=== PATIENT | female | born 1955 | race Caucasian/White ===

== ENCOUNTER 2016-05-02 19:11 | Emergency (ER) | payer OTHER ==
[~2016-05-02] VITALS: Wt 84.5 kg
[~2016-05-02 19:11] MED LIST: ALPR0.25 PO; AMLO5TAB4 PO; ATOR10TA65 PO; AZIT250T94 PO; BENZ100C70 PO; CALC-395 PO; GLYB2.5T2 PO; LINA5TAB PO; LOSA100T7 PO; MECL-77 PO; METO-429 PO; OMEP20CA16 PO; ONDA-43 PO; PARO10TA26 PO
[2016-05-02 20:02] VITALS: BP 162/92; PULSE 72; RESP 25; TEMP 97.9
[2016-05-02] MEDS ORDERED: SOD CHLORIDE 0.9% 1,000 ML IV STA (20:09)
[2016-05-02] MEDS ORDERED: KETOROLAC 15 MG INJ IV STA (20:09)
[2016-05-02] MEDS ORDERED: LORAZEPAM 2 MG INJ IV ONE (20:30)
[2016-05-02] MEDS ORDERED: LOSA50TA6 PO (20:50)
[2016-05-02] MEDS ORDERED: METO-448 PO (20:50)
[2016-05-02 20:51] LABS: BASOPHIL # 0.1 10^3/ul (0.0-0.1); BASOPHILS % 0.7 % (0.0-2.0); EOSINOPHILS # 0.2 10^3/ul (0.0-0.5); EOSINOPHILS % 1.8 % (0.0-7.0); HEMATOCRIT 46.7 % (37.0-47.0); HEMOGLOBIN 16.1 g/dl (12.0-16.0); LYMPHOCYTES # 3.2 10^3/ul (0.8-2.9); LYMPHOCYTES % 29.7 % (15.0-51.0); MEAN CORPUSCULAR HEMOGLOBIN 29.2 pg (29.0-33.0); MEAN CORPUSCULAR HGB CONC 34.5 g/dl (32.0-37.0); MEAN CORPUSCULAR VOLUME 84.4 fl (82.0-101.0); MEAN PLATELET VOLUME 8.6 fl (7.4-10.4); MONOCYTE # 0.8 10^3/ul (0.3-0.9); MONOCYTES % 7.8 % (0.0-11.0); NEUTROPHIL # 6.4 10^3/ul (1.6-7.5); PLATELET COUNT 338 10^3/UL (140-440); RED BLOOD COUNT 5.54 10^6/ul (4.20-5.40); RED CELL DISTRIBUTION WIDTH 14.1 % (11.5-14.5); UNCORRECTED WBC 10.7 10^3/ul (4.8-10.8); WHITE BLOOD COUNT 10.7 10^3/ul (4.8-10.8)
[2016-05-02] MEDS ORDERED: AMLO2.5T78 PO (20:51)
[2016-05-02] MEDS ORDERED: METF-382 PO (20:51)
[2016-05-02] MEDS ORDERED: ASPI-664 PO (20:51)
[2016-05-02 20:52] LABS: CONDITION 1
[2016-05-02 20:54] LABS: POTASSIUM 4.3 mmol/L (3.5-5.1)
[2016-05-02 20:56] LABS: CREATININE 0.6 mg/dl (0.44-1.00)
[2016-05-02 20:57] LABS: CALCIUM 10.3 mg/dl (8.4-10.2)
[2016-05-02 21:01] LABS: ADD UMIC NO; URINE BILIRUBIN (Dip) NEGATIVE (NEGATIVE); URINE BLOOD (Dip) NEGATIVE (NEGATIVE); URINE COLOR LT. YELLOW (YELLOW); URINE GLUCOSE (Dip) NEGATIVE (NEGATIVE); URINE KETONES (Dip) NEGATIVE (NEGATIVE); URINE LEUKOCYTE ESTERASE (Dip) NEGATIVE (NEGATIVE); URINE NITRITE (Dip) NEGATIVE (NEGATIVE); URINE TOTAL PROTEIN (Dip) NEGATIVE (NEGATIVE); URINE UROBILINOGEN (Dip) 0.2 E.U./dL (0.1-1.0)
[2016-05-02] MEDS ORDERED: ALPR0.5T PO (22:15)
[2016-05-02] MEDS ORDERED: IBUP-1542 PO (22:17)
--- NOTE | 2016-05-02 22:22 | ERD ---
ER Documentation Chief Complaint Date/Time DATE: 05/02/16 TIME: 22:20 Chief Complaint severe headache started today and neck and left arm numbness HPI 60-year-old woman brought in by family members for diffuse headache beginning gradually after speaking to her father who is in [place]. Patient has a long history of depression and anxiety and states she felt extremely anxious after speaking to him because of long-standing family issues she has had, she states she has had similar episodes in the past usually associated with anxiety and stress related to her father. She states the headache is similar to previous episodes, began gradually, associated with full body paresthesias and carpopedal spasms. She denies slurred speech or weakness in her arms or legs, no vomiting or diarrhea, no chest pain or shortness of breath, no fevers or chills, no loss of consciousness, no dysuria. ROS All systems reviewed and are negative except as per history of present illness. Medications Home Meds Active Scripts Ibuprofen* (Ibuprofen*) 600 Mg Tablet, 600 MG PO Q8 for PAIN AND/OR INFLAMMATION , #30 TAB Prov:JONATHAN HODGES MD 05/02/16 Alprazolam* (Xanax*) 0.5 Mg Tab, 0.5 MG PO TID for ANXIETY, #15 TAB Prov:JONATHAN HODGES MD 05/02/16 Reported Medications Aspirin* (Aspirin* EC) 81 Mg Tablet.dr, 81 MG PO DAILY, TAB 05/02/16 Amlodipine Besylate* (Amlodipine Besylate*) 2.5 Mg Tablet, 2.5 MG PO DAILY, #30 TAB 05/02/16 Metformin Hcl* (Metformin Hcl*) 500 Mg Tablet, 500 MG PO WITH BREAKFAST DINNE, # 60 TAB 05/02/16 Metoprolol Tartrate* (Lopressor*) 25 Mg Tab, 25 MG PO DAILY, #60 TAB 05/02/16 Losartan Potassium* (Losartan Potassium*) 50 Mg Tablet, 50 MG PO DAILY, TAB 05/02/16 Calcium Phosphate/Vitamin D3 (Calvite P&D Tablet) 1 Tab Tablet, 1 TAB PO BID, TAB 05/25/15 Paroxetine Hcl* (Paxil*) 10 Mg Tablet, 10 MG PO DAILY, TAB 05/25/15 Omeprazole* (Omeprazole*) 20 Mg Capsule.dr, 20 MG PO DAILY, #30 CAP 05/25/15 Atorvastatin Calcium (Atorvastatin Calcium) 10 Mg Tablet, 10 MG PO QHS, #30 TAB 05/25/15 Discontinued Reported Medications Alprazolam* (Xanax*) 0.25 Mg Tablet, 0.25 MG PO QHS Y for ANXIETY, TAB 09/23/15 Meclizine Hcl* (Meclizine Hcl*) 25 Mg Tablet, 25 MG PO Q8H Y for NAUSEA AND/OR VOMITING, TAB 05/25/15 Losartan Potassium* (Losartan Potassium*) 100 Mg Tablet, 100 MG PO DAILY, TAB 05/25/15 Discontinued Scripts Ondansetron Hcl* (Zofran*) 4 Mg Tab, 4 MG PO Q6H Y for NAUSEA AND OR VOMITING for 14 Days, TAB Prov:KARYN PRESLEY S. 09/25/15 Amlodipine Besylate* (Norvasc*) 5 Mg Tablet, 5 MG PO DAILY for 30 Days, TAB Prov:KARYN PRESLEY S. 09/24/15 Metoprolol Tartrate* (Lopressor*) 50 Mg Tab, 50 MG PO DAILY, #30 TAB Prov:KARYN PRESLEY S. 09/24/15 Linagliptin (TRADJENTA) 5 Mg Tablet, 5 MG PO DAILY for 30 Days, TAB 2 Refills Prov:KARYN PRESLEY S. 09/24/15 Glyburide* (Glyburide*) 2.5 Mg Tablet, 2.5 MG PO BID WITH MEALS for 30 Days, TAB 2 Refills Prov:KARYN PRESLEY S. 09/24/15 Benzonatate* (Tessalon Perle*) 100 Mg Capsule, 200 MG PO TID, #15 CAP Prov:WALDO NEW MD 05/25/15 Azithromycin* (Zithromax*) 250 Mg Tablet, 250 MG PO .ZPACK DIRECTED, #6 TAB TAKE 500 MG (2 TABS) THE FIRST DAY THEN 250 MG (1 TAB) DAYS 2-5 Prov:WALDO NEW MD 05/25/15 Allergies Allergies: Coded Allergies: No Known Allergy (Unverified , 05/02/16) PMhx/Soc Depression, anxiety, diabetes mellitus, hypertension, obesity History of Surgery: Yes (c sec x2, appy, bladder) Anesthesia Reaction: No (unknown) Hx Neurological Disorder: No Hx Respiratory Disorders: No Hx Cardiac Disorders: Yes (htn) Hx Psychiatric Problems: Yes (depression) Hx Miscellaneous Medical Probl: Yes (DM) Hx Alcohol Use: No Hx Substance Use: No Hx Tobacco Use: No Smoking Status: Never smoker FmHx Family History: No diabetes Physical Exam Vitals Vital Signs Date Time Temp Pulse Resp B/P Pulse Ox O2 Delivery O2 Flow Rate FiO2 05/02/16 20:02 97.9 72 25 162/92 100 Room Air 05/02/16 19:25 97.9 82 20 190/112 99 Physical Exam GENERAL: Well-developed, well-nourished, anxious HEENT: Moist mucous membranes, pink conjunctiva, no cervical spine tenderness or step-off deformities, no goiter, no jaundice or icterus, extraocular movements intact without pain. No submandibular induration, and no pharyngeal erythema NEURO: Alert and oriented 3, cranial nerves II through XII intact bilaterally, pupils equal round reactive to light, no focal deficits or facial asymmetry, sensation intact distally Strength 5/5 in upper and lower extremities bilaterally CARDIAC: Regular rate and rhythm, no murmurs rubs or gallops LUNGS: Clear bilaterally no wheezing crackles or stridor ABDOMEN: Soft nontender, no guarding, no rigidity, no rebound, no psoas sign no obturator sign. Normoactive bowel sounds SKIN: Warm and dry to touch, no abrasions, contusions, or hematomas, no lacerations, no ecchymosis, no target lesions, and without ulcers EXTREMITIES: No clubbing cyanosis or edema, calves are bilaterally symmetrical, no Homans sign, no popliteal cord sign. Distal pulses equal and bilateral PSYCH: Anxious Result Diagram: 05/02/16203105/02/162031 Results 24 hrs Laboratory Tests Test 05/02/16 20:32 Anion Gap 21 Basophils # 0.110^3/ul Basophils % 0.7% Blood Urea Nitrogen 13mg/dl Calcium Level 10.3mg/dl Carbon Dioxide Level 23mmol/L Chloride Level 103mmol/L Creatinine 0.60mg/dl Eosinophils # 0.210^3/ul Eosinophils % 1.8% Glucose Level 155mg/dl Hematocrit 46.7% Hemoglobin 16.1g/dl Lymphocytes # 3.210^3/ul Lymphocytes % 29.7% Mean Corpuscular Hemoglobin 29.2pg Mean Corpuscular Hemoglobin Concent 34.5g/dl Mean Corpuscular Volume 84.4fl Mean Platelet Volume 8.6fl Monocytes # 0.810^3/ul Monocytes % 7.8% Neutrophils # 6.410^3/ul Neutrophils % 60.0% Nucleated Red Blood Cells # 0.010^3/ul Nucleated Red Blood Cells % 0.0/100WBC Platelet Count 90320^3/UL Potassium Level 4.3mmol/L Red Blood Count 5.5410^6/ul Red Cell Distribution Width 14.1% Sodium Level 143mmol/L Urine Bilirubin NEGATIVE Urine Clarity CLEAR Urine Color LT. YELLOW Urine Glucose NEGATIVE% Urine Hemoglobin NEGATIVE Urine Ketones NEGATIVE Urine Leukocyte Esterase NEGATIVE Urine Nitrite NEGATIVE Urine Specific [place] <=1.005 Urine Total Protein NEGATIVE Urine Urobilinogen 0.2 E.U./dL Urine pH 6.0 White Blood Count 10.710^3/ul Current Medications Medications (Trade) Dose Ordered Sig/Sandy Route PRN Reason Start Time Stop Time Status Last Admin Dose Admin Lorazepam 0.5 mg 0.5 mg ONCE ONCE IV 05/02/16 20:30 05/02/16 20:31 DC 05/02/16 20:26 Sodium Chloride (NS) 1,000 ml @ 1,000 mls/hr Q1H STAT IV 05/02/16 20:09 05/02/16 21:08 DC 05/02/16 20:26 Ketorolac Tromethamine (Toradol) 15 mg ONCE STAT IV 05/02/16 20:09 05/02/16 20:10 DC 05/02/16 20:26 Oxycodone/ Acetaminophen (Percocet (5/ 325)) 1 tab ONCE ONCE PO 05/02/16 22:30 05/02/16 22:31 DC 05/02/16 22:43 Procedures/MDM IV line was established patient was placed on paving supervisor rhythm strip revealed a sinus rhythm at about 80 bpm with upright P and T waves. Patient was afebrile. I administered 1 L normal saline intravenously and lorazepam 0.5 mg IV for anxiety as well as Toradol 15 mg IV with good pain control. Headache initially improved and resolved completely although just prior to discharge she stated the discomfort returned and was treated successfully here with Percocet 1 tablet p.o. CBC and electrolytes were normal. Urine analysis was negative for infection. Neurologic exam was repeated after initial medications were administered and just prior to discharge, she had no focal deficits and no acute abnormal findings. Differential diagnoses considered, included but not limited to acute coronary syndrome, pulmonary embolism, aortic dissection, abdominal aortic aneurysm, sepsis, stroke, meningitis, encephalitis, pneumonia, appendicitis, cholecystitis , bowel obstruction, pyelonephritis, nephrolithiasis, cystitis, as well as metabolic, hematologic, and electrolyte abnormalities. As well as abscess, cellulitis, fractures, and dislocations. Patient feels much better at this time, and vital signs are normal, symptoms have improved. I did give strict instructions to return to the ED if symptoms continue or worsen, patient will otherwise follow-up with primary care physician. Patient understood instructions and agreed to plan. Departure Diagnosis: Primary Impression: Anxiety Additional Impression: Headache Headache type: unspecified Headache chronicity pattern: acute headache Intractability: not intractable Qualified Code: R51 - Acute nonintractable headache, unspecified headache type Condition: Good Patient Instructions: Anxiety Reaction, Headache, Tension JONATHAN HODGES MD May 02, 2016 22:22
[2016-05-02] MEDS ORDERED: OXYCODONE/ACETAMINOPHEN (5/325) TAB PO ONE (22:30)
== END 2016-05-02 22:48 | disposition home or self-care (01) ==
LOC: E/R 19:11
DX: F41.9 Anxiety disorder, unspecified (principal); I10 Essential (primary) hypertension; E11.9 Type 2 diabetes mellitus without complications; Z79.4 Long term (current) use of insulin; Z79.84 Long term (current) use of oral hypoglycemic drugs
CPT/HCPCS: 36415; 80048; 81003; 85025; 96374; 96375; 99284; J1885; J2060; J7030

== ENCOUNTER 2016-05-09 18:54 | Emergency (ER) | payer OTHER ==
[~2016-05-09] VITALS: Ht 162.6 cm; Wt 86.0 kg
[~2016-05-09 18:54] MED LIST changes: -ALPR0.25 PO; +ALPR0.5T PO; +AMLO2.5T78 PO; -AMLO5TAB4 PO; +ASPI-664 PO; -AZIT250T94 PO; -BENZ100C70 PO; -GLYB2.5T2 PO; +IBUP-1542 PO; -LINA5TAB PO; -LOSA100T7 PO; +LOSA50TA6 PO; -MECL-77 PO; +METF-382 PO; -METO-429 PO; +METO-448 PO; -ONDA-43 PO
[2016-05-09 20:13] VITALS: Ht 162.6 cm; Wt 86.0 kg
--- NOTE | 2016-05-09 21:37 | ERA ---
ER Documentation Chief Complaint Date/Time DATE: 05/09/16 TIME: 21:34 Chief Complaint headache x 8 days HPI The patient is a 60-year-old female, presenting to the ER because of acute on chronic left sided headache for the last 8 days. In the ER about a week ago and was discharged with medication for headache anxiety. She saw her doctor yesterday who ordered an MRI. She has history of migraine, denies photophobia, phonophobia, fever, chills, neck pain, chest pain, dyspnea, abdominal pain, vomiting. She has a lot of stress in her life headache is 5/10, no aggravating or relieving factor. She does not smoke nor drink Past medical history: Hypertension, diabetes mellitus, dyslipidemia, migraine, gastritis Past surgical history: 2 , appendectomy ROS All systems reviewed and are negative except as per history of present illness. Medications Home Meds Active Scripts Ondansetron (Ondansetron Odt) 4 Mg Tab.rapdis, 4 MG PO Q6H Y for NAUSEA AND/OR VOMITING, #10 TAB Prov:BRANDYN CALIX MD 05/09/16 Hydrocodone/Acetaminophen ([place] 10-325 Tablet) 1 Each Tablet, 1 TAB PO Q6H Y for PAIN, #7 TAB Prov:BRANDYN CALIX MD 05/09/16 Ibuprofen* (Ibuprofen*) 600 Mg Tablet, 600 MG PO Q8 for PAIN AND/OR INFLAMMATION , #30 TAB Prov:JONATHAN HODGES MD 05/02/16 Alprazolam* (Xanax*) 0.5 Mg Tab, 0.5 MG PO TID for ANXIETY, #15 TAB Prov:JONATHAN HODGES MD 05/02/16 Reported Medications Aspirin* (Aspirin* EC) 81 Mg Tablet.dr, 81 MG PO DAILY, TAB 05/02/16 Amlodipine Besylate* (Amlodipine Besylate*) 2.5 Mg Tablet, 2.5 MG PO DAILY, #30 TAB 05/02/16 Metformin Hcl* (Metformin Hcl*) 500 Mg Tablet, 500 MG PO WITH BREAKFAST DINNE, # 60 TAB 05/02/16 Metoprolol Tartrate* (Lopressor*) 25 Mg Tab, 25 MG PO DAILY, #60 TAB 05/02/16 Losartan Potassium* (Losartan Potassium*) 50 Mg Tablet, 50 MG PO DAILY, TAB 05/02/16 Calcium Phosphate/Vitamin D3 (Calvite P&D Tablet) 1 Tab Tablet, 1 TAB PO BID, TAB 05/25/15 Paroxetine Hcl* (Paxil*) 10 Mg Tablet, 10 MG PO DAILY, TAB 05/25/15 Omeprazole* (Omeprazole*) 20 Mg Capsule.dr, 20 MG PO DAILY, #30 CAP 05/25/15 Atorvastatin Calcium (Atorvastatin Calcium) 10 Mg Tablet, 10 MG PO QHS, #30 TAB 05/25/15 Discontinued Reported Medications Alprazolam* (Xanax*) 0.25 Mg Tablet, 0.25 MG PO QHS Y for ANXIETY, TAB 09/23/15 Meclizine Hcl* (Meclizine Hcl*) 25 Mg Tablet, 25 MG PO Q8H Y for NAUSEA AND/OR VOMITING, TAB 05/25/15 Losartan Potassium* (Losartan Potassium*) 100 Mg Tablet, 100 MG PO DAILY, TAB 05/25/15 Discontinued Scripts Ondansetron Hcl* (Zofran*) 4 Mg Tab, 4 MG PO Q6H Y for NAUSEA AND OR VOMITING for 14 Days, TAB Prov:KARYN PRESLEY S. 09/25/15 Amlodipine Besylate* (Norvasc*) 5 Mg Tablet, 5 MG PO DAILY for 30 Days, TAB Prov:KARYN PRESLEY S. 09/24/15 Metoprolol Tartrate* (Lopressor*) 50 Mg Tab, 50 MG PO DAILY, #30 TAB Prov:KARYN PRESLEY S. 09/24/15 Linagliptin (TRADJENTA) 5 Mg Tablet, 5 MG PO DAILY for 30 Days, TAB 2 Refills Prov:KARYN PRESLEY S. 09/24/15 Glyburide* (Glyburide*) 2.5 Mg Tablet, 2.5 MG PO BID WITH MEALS for 30 Days, TAB 2 Refills Prov:KARYN PRESLEY S. 09/24/15 Benzonatate* (Tessalon Perle*) 100 Mg Capsule, 200 MG PO TID, #15 CAP Prov:WALDO NEW MD 05/25/15 Azithromycin* (Zithromax*) 250 Mg Tablet, 250 MG PO .LIT DIRECTED, #6 TAB TAKE 500 MG (2 TABS) THE FIRST DAY THEN 250 MG (1 TAB) DAYS 2-5 Prov:WALDO NEW MD 05/25/15 Allergies Allergies: Coded Allergies: No Known Allergy (Unverified , 05/02/16) PMhx/Soc History of Surgery: Yes (c sec x2, appy, bladder) Anesthesia Reaction: No (unknown) Hx Neurological Disorder: No Hx Respiratory Disorders: No Hx Cardiac Disorders: Yes (htn) Hx Psychiatric Problems: Yes (depression) Hx Miscellaneous Medical Probl: Yes (DM) Hx Alcohol Use: No Hx Substance Use: No Hx Tobacco Use: No Physical Exam Vitals Vital Signs Date Time Temp Pulse Resp B/P Pulse Ox O2 Delivery O2 Flow Rate FiO2 05/09/16 22:13 99.6 82 20 163/98 100 Room Air 05/09/16 20:13 98.6 84 20 178/97 99 Physical Exam Const: No acute distress. Head: Atraumatic. Eyes: Normal Conjunctiva. ENT: Normal External Ears, Nose and Mouth. Neck: Full range of motion. No meningismus. Resp: Clear to auscultation bilaterally. Cardio: Regular rate and rhythm, no murmurs. Abd: Soft, non distended, normal bowel sounds, non tender. Skin: No petechiae or rashes. Back: No midline or flank tenderness. Ext: No cyanosis, or edema. Neur: Awake and alert. No focal deficit Psych: Normal Mood and Affect. Results 24 hrs Current Medications Medications (Trade) Dose Ordered Sig/Sandy Route PRN Reason Start Time Stop Time Status Last Admin Dose Admin Acetaminophen/ Hydrocodone Bitart ([place] (10/325)) 1 tab ONCE ONCE PO 05/09/16 22:30 05/09/16 22:30 DC 05/09/16 22:15 Ondansetron HCl (Zofran Odt) 4 mg ONCE STAT ODT 05/09/16 22:03 05/09/16 22:04 DC 05/09/16 22:14 Procedures/MDM MEDICAL MAKING DECISION: The patient is a 60-year-old female, presenting with acute on chronic headache of unclear etiology. She already had an MRI yesterday. She was treated with [place] 10 mg p.o. and Zofran ODT for nausea with good response. She is stable for outpatient follow-up. the differential diagnoses considered include but are not limited to subarachnoid hemorrhage, occult trauma, CVA, meningitis, encephalitis, hypertension, tension, migraine, cluster, narcotic withdrawal, cervical spine disease. Departure Diagnosis: Primary Impression: Chronic headache Condition: Good Comments She was discharged with Beto Balderas I discussed the findings with the patient. I advised the patient to follow-up with the neurologist Dr. Wayne in about 1-2 days, sooner if needed and return if any concern. BRANDYN CALIX MD May 09, 2016 21:37
[2016-05-09] MEDS ORDERED: ONDANSETRON (ODT) 4 MG TAB ODT STA (22:03)
[2016-05-09] MEDS ORDERED: ONDA4TAB14 PO (22:04)
[2016-05-09] MEDS ORDERED: HYDR-902 PO (22:04)
[2016-05-09 22:13] VITALS: BP 163/98; PULSE 82; RESP 20; TEMP 99.6
[2016-05-09] MEDS ORDERED: HYDROCODONE/APAP (10/325) TAB PO ONE (22:30)
== END 2016-05-09 22:19 | disposition home or self-care (01) ==
LOC: FTE 18:54
DX: R51 Headache (principal); I10 Essential (primary) hypertension; E11.9 Type 2 diabetes mellitus without complications; I25.10 Atherosclerotic heart disease of native coronary artery without angina pectoris; Z79.84 Long term (current) use of oral hypoglycemic drugs
CPT/HCPCS: 99284

== ENCOUNTER 2016-06-14 12:03 | Emergency (ER) | payer OTHER ==
[~2016-06-14] VITALS: Wt 83.0 kg
[~2016-06-14 12:03] MED LIST changes: +HYDR-902 PO; +ONDA4TAB14 PO
[2016-06-14] MEDS ORDERED: ONDANSETRON 4 MG INJ IV STA (12:32)
[2016-06-14] MEDS ORDERED: morphine 4 MG/ML VIAL IV STA (12:32)
[2016-06-14] MEDS ORDERED: SOD CHLORIDE 0.9% 1,000 ML IV STA (12:32)
[2016-06-14] MEDS ORDERED: CITA10TA72 PO (12:47)
[2016-06-14 13:13] LABS: ADD SCAN DIFF NO
[2016-06-14 13:17] LABS: BASOPHILS % 0.4 % (0.0-2.0); EOSINOPHILS # 0.2 10^3/ul (0.0-0.5); EOSINOPHILS % 1.8 % (0.0-7.0); HEMATOCRIT 47.1 % (37.0-47.0); HEMOGLOBIN 15.1 g/dl (12.0-16.0); LYMPHOCYTES # 2.7 10^3/ul (0.8-2.9); LYMPHOCYTES % 29.8 % (15.0-51.0); MEAN CORPUSCULAR HEMOGLOBIN 28.2 pg (29.0-33.0); MEAN CORPUSCULAR HGB CONC 32.1 g/dl (32.0-37.0); MEAN CORPUSCULAR VOLUME 87.9 fl (82.0-101.0); MEAN PLATELET VOLUME 9.9 fl (7.4-10.4); MONOCYTE # 0.8 10^3/ul (0.3-0.9); MONOCYTES % 8.4 % (0.0-11.0); NEUTROPHIL # 5.4 10^3/ul (1.6-7.5); NEUTROPHILS % 59.4 % (39.0-77.0); PLATELET COUNT 352 10^3/UL (140-415); RED BLOOD COUNT 5.36 10^6/ul (4.20-5.40)
[2016-06-14 13:31] LABS: ALBUMIN 4.7 g/dl (3.3-4.9)
[2016-06-14 13:32] LABS: POTASSIUM 4.1 mmol/L (3.5-5.1)
[2016-06-14 13:34] LABS: ALBUMIN/GLOBULIN RATIO 1.38; CREATININE 0.65 mg/dl (0.44-1.00); TOTAL PROTEIN 8.1 g/dl (6.1-8.1)
[2016-06-14 13:35] LABS: CALCIUM 9.8 mg/dl (8.4-10.2)
--- NOTE | 2016-06-14 13:45 | RADRPT ---
PROCEDURE: CT abdomen and pelvis without contrast. Site of service: emergency room. CLINICAL INDICATION: Left lower quadrant abdominal pain, left flank pain, renal stone. TECHNIQUE: CT scan of the abdomen and pelvis without contrast was performed on the CT scanner. Th e patient was scanned without intravenous contrast. Oral contrast was not administered. 3-D post p rocessing coronal and sagittal re-formations were obtained from the axial source images. Exam D L P [address] D V O L 18 mgy. This exam is limited due to lack of intravenous contrast. One or more of the following dose reduction techniques were used: Automated exposure control Adjustment of the mA and/or kV according to patient size. Use of iterative reconstruction technique. COMPARISON: Abdominal ultrasound September 23, 2015 FINDINGS: CT abdomen: The lung bases are clear. The heart size is normal, without pericardial thickening or effusion. The liver is normal in size and density without focal mass or intrahepatic biliary dilatation. Mild fatty infiltration of the liver is again noted. The spleen is normal in size and homogeneous in dens ity. The stomach is partially collapsed, but is grossly unremarkable. The pancreas as visualized i s normal. The gallbladder and biliary tree are unremarkable and there is no evidence for biliary di latation. The adrenal glands are symmetric and normal. The kidneys are symmetrically unremarkable as well. N o renal calculus or obstructive uropathy or suspicious, mass lesion is seen. The aorta is of normal caliber. There is no retroperitoneal lymphadenopathy. The david hepatis je on is clear. The bowel and mesentery, as visualized, are equally unremarkable. CT pelvis: The small bowel loops situated within the pelvis are unremarkable. The appendix is normal. The sig moid colon and rectum are all unremarkable. No mass, lymphadenopathy, or free fluid is seen. No ac [place] inflammation is seen. The pelvic organs are normal. The pelvic sidewalls and inguinal regions are clear. The surrounding osseous structures demonstrate mild, diffuse, degenerative disk disease. No osteoly tic or osteoblastic lesion is detected. IMPRESSION: Mild fatty infiltration of the liver. Otherwise, negative exam. No interval change. No acute inflam mation, perforation, bowel obstruction, renal, ureteral, or bladder stone. RPTAT: QQ .Yolanda Fink MD, MD Date Time Electronically viewed and signed by .Yolanda Fink MD, on 06/14/2016 13:44 .F/
[2016-06-14] MEDS ORDERED: DICLOFENAC SODIUM 37.5 MG/ML VIAL IV STA (14:28)
[2016-06-14 14:36] LABS: ADD UMIC NO; URINE BILIRUBIN (Dip) NEGATIVE (NEGATIVE); URINE BLOOD (Dip) NEGATIVE (NEGATIVE); URINE COLOR LT. YELLOW (YELLOW); URINE GLUCOSE (Dip) NEGATIVE (NEGATIVE); URINE KETONES (Dip) NEGATIVE (NEGATIVE); URINE LEUKOCYTE ESTERASE (Dip) NEGATIVE (NEGATIVE); URINE NITRITE (Dip) NEGATIVE (NEGATIVE); URINE TOTAL PROTEIN (Dip) NEGATIVE (NEGATIVE); URINE UROBILINOGEN (Dip) 0.2 E.U./dL (0.1-1.0)
[2016-06-14] MEDS ORDERED: DIAZEPAM 5 MG/ML SYG IV ONE (15:30)
[2016-06-14] MEDS ORDERED: CEPH500C PO (16:32)
[2016-06-14] MEDS ORDERED: HYDR-906 PO (16:32)
[2016-06-14] MEDS ORDERED: METH500T PO (16:32)
[2016-06-14] MEDS ORDERED: NAPR-688 PO (16:32)
--- NOTE | 2016-06-14 17:22 | ERD ---
ER Documentation Chief Complaint Date/Time DATE: 06/14/16 TIME: 17:18 Chief Complaint L SIDE ABD PAIN RADIATING TO LEFT FLANK. N/V/D. NO DYSURIA OR HEMATURIA HPI This 60-year-old female comes with left lower quadrant abdominal pain and left flank pain. She has had nausea vomiting and diarrhea. Denies that she denies fevers and chills. Left back pain hurts when she touches it or when she moves. Abdominal pain is described as an aching pain. ROS All systems reviewed and are negative except as per history of present illness. Medications Home Meds Active Scripts Cephalexin* (Cephalexin*) 500 Mg Capsule, 500 MG PO Q8, #9 CAP Prov:NELDAMATTI DO 06/14/16 Methocarbamol* (Robaxin*) 500 Mg Tab, 500 MG PO Q8, #17 TAB Prov:NELDAMATTI DO 06/14/16 Hydrocodone/Acetaminophen ([place] 5-325 Tablet) 1 Each Tablet, 1 EACH PO Q6, #19 TAB Prov:NELDAMATTI DO 06/14/16 Naproxen* (Naproxen*) 500 Mg Tablet, 500 MG PO BID Y for PAIN, #20 TAB Prov:NELDAMATTI DO 06/14/16 Ondansetron (Ondansetron Odt) 4 Mg Tab.rapdis, 4 MG PO Q6H Y for NAUSEA AND/OR VOMITING, #10 TAB Prov:BRANDYN CALIX MD 05/09/16 Hydrocodone/Acetaminophen ([place] 10-325 Tablet) 1 Each Tablet, 1 TAB PO Q6H Y for PAIN, #7 TAB Prov:BRANDYN CALIX MD 05/09/16 Ibuprofen* (Ibuprofen*) 600 Mg Tablet, 600 MG PO Q8 for PAIN AND/OR INFLAMMATION , #30 TAB Prov:JONATHAN HODGES MD 05/02/16 Alprazolam* (Xanax*) 0.5 Mg Tab, 0.5 MG PO TID for ANXIETY, #15 TAB Prov:JONATHAN HODGES MD 05/02/16 Reported Medications Citalopram Hydrobromide* (Celexa*) 10 Mg Tablet, 10 MG PO DAILY, #30 TAB 06/14/16 Aspirin* (Aspirin* EC) 81 Mg Tablet.dr, 81 MG PO DAILY, TAB 05/02/16 Amlodipine Besylate* (Amlodipine Besylate*) 2.5 Mg Tablet, 2.5 MG PO DAILY, #30 TAB 05/02/16 Metformin Hcl* (Metformin Hcl*) 500 Mg Tablet, 500 MG PO WITH BREAKFAST DINNE, # 60 TAB 05/02/16 Metoprolol Tartrate* (Lopressor*) 25 Mg Tab, 25 MG PO DAILY, #60 TAB 05/02/16 Losartan Potassium* (Losartan Potassium*) 50 Mg Tablet, 50 MG PO DAILY, TAB 05/02/16 Calcium Phosphate/Vitamin D3 (Calvite P&D Tablet) 1 Tab Tablet, 1 TAB PO BID, TAB 05/25/15 Omeprazole* (Omeprazole*) 20 Mg Capsule.dr, 20 MG PO DAILY, #30 CAP 05/25/15 Atorvastatin Calcium (Atorvastatin Calcium) 10 Mg Tablet, 10 MG PO QHS, #30 TAB 05/25/15 Discontinued Reported Medications Paroxetine Hcl* (Paxil*) 10 Mg Tablet, 10 MG PO DAILY, TAB 05/25/15 Allergies Allergies: Coded Allergies: No Known Allergy (Unverified , 06/14/16) PMhx/Soc Medical and Surgical Hx: pt denies Surgical Hx History of Surgery: No Anesthesia Reaction: No Hx Neurological Disorder: No Hx Respiratory Disorders: No Hx Cardiac Disorders: Yes (HTN, CAD) Hx Psychiatric Problems: No Hx Miscellaneous Medical Probl: No Hx Alcohol Use: No Hx Substance Use: No Hx Tobacco Use: No Smoking Status: Never smoker Physical Exam Vitals Vital Signs Date Time Temp Pulse Resp B/P Pulse Ox O2 Delivery O2 Flow Rate FiO2 06/14/16 16:24 98.4 86 16 129/85 100 Room Air 06/14/16 14:24 98.3 98 16 135/93 100 Room Air 06/14/16 12:04 97.9 77 21 160/82 99 Physical Exam Const: [] No distress Head: Atraumatic Eyes: Normal Conjunctiva ENT: Normal External Ears, Nose and Mouth. Neck: Full range of motion..~ No meningismus. Resp: Clear to auscultation bilaterally Cardio: Regular rate and rhythm, no murmurs Abd: Soft, mild left lower quadrant abdominal tenderness without guarding or rebound, non distended. Normal bowel sounds Skin: No petechiae or rashes Back: No midline tenderness, left lumbar paraspinal muscle spasm, significant tenderness to palpation along the paraspinal muscle is contracted. Ext: No cyanosis, or edema Neur: Awake and alert and oriented 3, no focal deficits Psych: Normal Mood and Affect Result Diagram: 06/14/16 1235 06/14/16 1235 Results 24 hrs Laboratory Tests Test 06/14/16 12:35 06/14/16 14:19 Alanine Aminotransferase (ALT/SGPT) 104IU/L Albumin 4.7g/dl Albumin/Globulin Ratio 1.38 Alkaline Phosphatase 169IU/L Anion Gap 20 Aspartate Amino Transf (AST/SGOT) 81IU/L Basophils # 0.010^3/ul Basophils % 0.4% Blood Urea Nitrogen 12mg/dl Calcium Level 9.8mg/dl Carbon Dioxide Level 24mmol/L Chloride Level 100mmol/L Creatinine 0.65mg/dl Direct Bilirubin 0.00mg/dl Eosinophils # 0.210^3/ul Eosinophils % 1.8% Globulin 3.40g/dl Glucose Level 187mg/dl Hematocrit 47.1% Hemoglobin 15.1g/dl Indirect Bilirubin 0.0mg/dl Lipase 86U/L Lymphocytes # 2.710^3/ul Lymphocytes % 29.8% Mean Corpuscular Hemoglobin 28.2pg Mean Corpuscular Hemoglobin Concent 32.1g/dl Mean Corpuscular Volume 87.9fl Mean Platelet Volume 9.9fl Monocytes # 0.810^3/ul Monocytes % 8.4% Neutrophils # 5.410^3/ul Neutrophils % 59.4% Nucleated Red Blood Cells # 0.010^3/ul Nucleated Red Blood Cells % 0.0/100WBC Platelet Count 93615^3/UL Potassium Level 4.1mmol/L Red Blood Count 5.3610^6/ul Red Cell Distribution Width 14.0% Sodium Level 140mmol/L Total Bilirubin 0.0mg/dl Total Protein 8.1g/dl White Blood Count 9.010^3/ul Urine Bilirubin NEGATIVE Urine Clarity CLEAR Urine Color LT. YELLOW Urine Glucose NEGATIVE% Urine Hemoglobin NEGATIVE Urine Ketones NEGATIVE Urine Leukocyte Esterase NEGATIVE Urine Nitrite NEGATIVE Urine Specific [place] <=1.005 Urine Total Protein NEGATIVE Urine Urobilinogen 0.2 E.U./dL Urine pH 6.0 Current Medications Medications (Trade) Dose Ordered Sig/Sandy Route PRN Reason Start Time Stop Time Status Last Admin Dose Admin Sodium Chloride (NS) 1,000 ml @ 1,000 mls/hr Q1H STAT IV 06/14/16 12:32 06/14/16 13:31 DC 06/14/16 12:43 Morphine Sulfate (morphine) 4 mg ONCE STAT IV 06/14/16 12:32 06/14/16 12:34 DC 06/14/16 12:44 Ondansetron HCl (Zofran Inj) 4 mg ONCE STAT IV 06/14/16 12:32 06/14/16 12:34 DC 06/14/16 12:43 Diclofenac Sodium (Dyloject) 37.5 mg ONCE STAT IV 06/14/16 14:28 06/14/16 14:29 DC 06/14/16 14:44 Diazepam (Valium) 5 mg ONCE ONCE IV 06/14/16 15:30 06/14/16 15:31 DC 06/14/16 15:26 Procedures/MDM Nontraumatic back muscle spasm with likely viral gastroenteritis. No signs of renal dysfunction, kidney stone, serious abdominal emergency. No signs of acute urinary tract infection. Patient was treated in ER with IV morphine, Valium, anti-inflammatory medication. Pain was very much reduced. She had no electrolyte abnormalities. I'm going to discharge her with [place], Robaxin, naproxen as well as 3 days Keflex. Patient was aware that she has fatty liver disease and was not surprised that she has mildly elevated liver enzymes. Return precautions given as well as primary care follow-up in 2-[address] of pelvis interpretation: Fatty liver, no other acute process, I see no constipation, no obstruction, no free air, no abnormal fat stranding. No bony abnormalities Departure Diagnosis: Primary Impression: LLQ abdominal pain Additional Impressions: Fatty liver Spasm of back muscles Condition: Stable Patient Instructions: Muscle Spasm, Abdominal Pain, Unknown Cause, (Female) Additional Instructions: Llame al doctor MAANA y yuliana dieudonne ONOFRE PARA DENTRO DE 2-3 TORRES.Dgale a la secretaria que nosotros le instruimos hacer esta onofre.Avise o llame si dunn condicin se empeora antes de la onofre. Regresa aqui si peor o no mejor. MATTI LUTZ DO Jun 14, 2016 17:22
[2016-06-14 17:24] VITALS: BP 124/85; PULSE 87; RESP 16; TEMP 98.4
== END 2016-06-14 17:24 | disposition home or self-care (01) ==
LOC: E/R 12:03
DX: R10.32 Left lower quadrant pain (principal); K76.0 Fatty (change of) liver, not elsewhere classified; M62.830 Muscle spasm of back; R11.2 Nausea with vomiting, unspecified; I10 Essential (primary) hypertension; I25.10 Atherosclerotic heart disease of native coronary artery without angina pectoris; E11.9 Type 2 diabetes mellitus without complications; Z79.84 Long term (current) use of oral hypoglycemic drugs; Z79.82 Long term (current) use of aspirin
CPT/HCPCS: 36415; 74176; 80053; 81003; 83690; 85025; 96374; 96375; 99285; J2270; J2405; J3360; J7030

== ENCOUNTER 2017-01-04 10:54 | Emergency (ER) | payer OTHER ==
[~2017-01-04] VITALS: Ht 162.6 cm; Wt 82.0 kg
[~2017-01-04 10:54] MED LIST changes: +CEPH500C PO; +CITA10TA72 PO; +HYDR-906 PO; -METF-382 PO; +METF500T4 PO; +METH500T PO; +NAPR-688 PO; -PARO10TA26 PO
[2017-01-04 10:55] VITALS: Ht 162.6 cm; Wt 82.0 kg
--- NOTE | 2017-01-04 11:24 | ERD ---
ER Documentation Chief Complaint Date/Time DATE: 01/04/17 TIME: 11:10 Chief Complaint right side back pain x2 days, denies painful urination HPI 61-year-old female who presents emergency department for right-sided back pain for 2 days. Denies headache, dizziness, blurry vision, neck pain, shoulder pain, chest pain , nausea, vomiting, diarrhea, constipation, loss of bowel and bladder control, urinary symptoms, recent exposure to any illness, direct trauma, fever, chills, numbness or tingling sensation. No known drug allergies. Past medical history of diabetes, hypertension, GERD. Medication: Norvasc, metformin, omeprazole, metoprolol, losartan, methocarbamol. ROS All systems reviewed and are negative except as per history of present illness. Medications Home Meds Active Scripts Cyclobenzaprine Hcl* (Cyclobenzaprine Hcl*) 10 Mg Tablet, 10 MG PO Q12 Y for PAIN, #15 TAB Prov:MIRIAM AVALOS 01/04/17 Cephalexin* (Cephalexin*) 500 Mg Capsule, 500 MG PO Q8, #9 CAP Prov:MATTI LUTZ DO 06/14/16 Methocarbamol* (Robaxin*) 500 Mg Tab, 500 MG PO Q8, #17 TAB Prov:MATTI LUTZ DO 06/14/16 Hydrocodone/Acetaminophen (Fertile 5-325 Tablet) 1 Each Tablet, 1 EACH PO Q6, #19 TAB Prov:NELDAMATTI DO 06/14/16 Naproxen* (Naproxen*) 500 Mg Tablet, 500 MG PO BID Y for PAIN, #20 TAB Prov:MATTI LUTZ DO 06/14/16 Ondansetron (Ondansetron Odt) 4 Mg Tab.rapdis, 4 MG PO Q6H Y for NAUSEA AND/OR VOMITING, #10 TAB Prov:BRANDYN CALIX MD 05/09/16 Hydrocodone/Acetaminophen (Fertile 10-325 Tablet) 1 Each Tablet, 1 TAB PO Q6H Y for PAIN, #7 TAB Prov:BRANDYN CALIX MD 05/09/16 Ibuprofen* (Ibuprofen*) 600 Mg Tablet, 600 MG PO Q8 for PAIN AND/OR INFLAMMATION , #30 TAB Prov:JONATHAN HODGES MD 05/02/16 Alprazolam* (Xanax*) 0.5 Mg Tab, 0.5 MG PO TID for ANXIETY, #15 TAB Prov:JONATHAN HODGES MD 05/02/16 Reported Medications Citalopram Hydrobromide* (Celexa*) 10 Mg Tablet, 10 MG PO DAILY, #30 TAB 06/14/16 Aspirin* (Aspirin* EC) 81 Mg Tablet.dr, 81 MG PO DAILY, TAB 05/02/16 Amlodipine Besylate* (Amlodipine Besylate*) 2.5 Mg Tablet, 2.5 MG PO DAILY, #30 TAB 05/02/16 Metformin Hcl* (Metformin Hcl*) 500 Mg Tablet, 500 MG PO WITH BREAKFAST DINNE, # 60 TAB 05/02/16 Metoprolol Tartrate* (Lopressor*) 25 Mg Tab, 25 MG PO DAILY, #60 TAB 05/02/16 Losartan Potassium* (Losartan Potassium*) 50 Mg Tablet, 50 MG PO DAILY, TAB 05/02/16 Calcium Phosphate/Vitamin D3 (Calvite P&D Tablet) 1 Tab Tablet, 1 TAB PO BID, TAB 05/25/15 Omeprazole* (Omeprazole*) 20 Mg Capsule.dr, 20 MG PO DAILY, #30 CAP 05/25/15 Atorvastatin Calcium (Atorvastatin Calcium) 10 Mg Tablet, 10 MG PO QHS, #30 TAB 05/25/15 Allergies Allergies: Coded Allergies: No Known Allergy (Unverified , 01/04/17) PMhx/Soc History of Surgery: No Anesthesia Reaction: No Hx Neurological Disorder: No Hx Respiratory Disorders: No Hx Cardiac Disorders: Yes (HTN, CAD) Hx Psychiatric Problems: No Hx Miscellaneous Medical Probl: No Hx Alcohol Use: No Hx Substance Use: No Hx Tobacco Use: No Smoking Status: Never smoker Physical Exam Vitals Vital Signs Date Time Temp Pulse Resp B/P Pulse Ox O2 Delivery O2 Flow Rate FiO2 01/04/17 10:55 97.2 68 20 158/78 100 Physical Exam Const: [] Head: Atraumatic Eyes: Normal Conjunctiva ENT: Normal External Ears, Nose and Mouth. Neck: Full range of motion..~ No meningismus. Resp: Clear to auscultation bilaterally Cardio: Regular rate and rhythm, no murmurs Abd: Soft, non tender, non distended. Normal bowel sounds Skin: No petechiae or rashes Back: No midline or flank tenderness Ext: No cyanosis, or edema. C-spine/T-spine/L-spine are in midline with good and full range of motion and without swelling/discoloration/bulging/point of tenderness/deformity. Bilateral upper and lower extremities are unremarkable. No saddle anesthesia. Cranial nerves II through XII intact. Romberg test negative. Neur: Awake and alert Psych: Normal Mood and Affect Results 24 hrs Laboratory Tests Test 01/04/17 11:21 Urine Color YELLOW Urine Clarity CLEAR Urine pH 6.0 Urine Specific [place] 1.012 Urine Ketones NEGATIVEmg/dL Urine Nitrite NEGATIVEmg/dL Urine Bilirubin NEGATIVEmg/dL Urine Urobilinogen NEGATIVEmg/dL Urine Leukocyte Esterase NEGATIVELeu/ul Urine Hemoglobin NEGATIVEmg/dL Urine Glucose NEGATIVEmg/dL Urine Total Protein NEGATIVEmg/dl Current Medications Medications (Trade) Dose Ordered Sig/Sandy Route PRN Reason Start Time Stop Time Status Last Admin Dose Admin Ketorolac Tromethamine (Toradol) 60 mg ONCE STAT IM 01/04/17 12:33 01/04/17 12:34 DC 01/04/17 12:43 Procedures/MDM 61-year-old female who presents emergency department for right-sided back pain for 2 days. Denies headache, dizziness, blurry vision, neck pain, shoulder pain, chest pain , nausea, vomiting, diarrhea, constipation, loss of bowel and bladder control, urinary symptoms, recent exposure to any illness, direct trauma, fever, chills, numbness or tingling sensation. No known drug allergies. Past medical history of diabetes, hypertension, GERD. Medication: Norvasc, metformin, omeprazole, metoprolol, losartan, methocarbamol. Physical exam: Respirations even and unlabored. Lung sounds are clear to auscultation. Regular rate and rhythm of the heart. C-spine/T-spine/L-spine are in midline with good and full range of motion and without swelling/ discoloration/bulging/point of tenderness/deformity. Bilateral upper and lower extremities are unremarkable. No saddle anesthesia. Cranial nerves II through XII intact. Romberg test negative. Disease process was explained to the patient and family member. They both verbalized understanding and agreed with the diagnostic test, treatment, plan of care. Urinalysis: Negative. X-ray of the L-spine: Degenerative changes described above. No acute abnormality. Chest x-ray: Normal chest radiograph. No change from 09/23/2015. EKG: Sinus bradycardia with a ventricular rate of 57 bpm. Treatment: Toradol IM Differential diagnosis: Abdominal aortic aneurysm versus acute myocardial infarction versus lumbar fractures versus pneumonia versus sciatica versus musculoskeletal spasms Diagnosis: Musculoskeletal spasms. Prescription: Flexeril. Follow-up with primary care physician the next 24-48 hours. Come back here in the emergency department for any new symptoms or any worsening of symptoms. All questions and concerns are answered. Patient and family member verbalized understanding and agreed with the plan of care. Hemodynamically stable on discharge. Departure Diagnosis: Primary Impression: Back pain Additional Impression: Sciatica Condition: Stable Additional Instructions: Follow-up with primary care physician the next 24-48 hours. Come back here in the emergency department for any new symptoms or any worsening of symptoms. All questions and concerns are answered. Patient and family member verbalized understanding and agreed with the plan of care. MIRIAM AVALOS Jan 04, 2017 11:24
[2017-01-04 12:00] LABS: ADD UMIC NO; UR ASCORBIC ACID NEGATIVE (NEGATIVE); UR BILIRUBIN (Dip) NEGATIVE (NEGATIVE); UR BLOOD (Dip) NEGATIVE (NEGATIVE); UR CLARITY CLEAR (CLEAR); UR COLOR YELLOW (YELLOW); UR GLUCOSE (Dip) NEGATIVE (NEGATIVE); UR KETONES (Dip) NEGATIVE (NEGATIVE); UR LEUKOCYTE ESTERASE (Dip) NEGATIVE Leu/ul (NEGATIVE); UR NITRITE (Dip) NEGATIVE (NEGATIVE); UR SPECIFIC GRAVITY (Dip) 1.012 (1.003-1.030); UR TOTAL PROTEIN (Dip) NEGATIVE (NEGATIVE); UR UROBILINOGEN (Dip) NEGATIVE (NEGATIVE)
--- NOTE | 2017-01-04 12:11 | RADRPT ---
PROCEDURE: XR Chest. CLINICAL INDICATION: Right neck pain. TECHNIQUE: Two views. Frontal and lateral. COMPARISON: 09/23/2015. FINDINGS: The lungs are clear. The heart size is normal. There is no pleural effusion. There is no pneumothorax. IMPRESSION: 1. Normal chest radiograph. 2. No change from 09/23/2015. RPTAT: QQ .Jacobo Palencia MD, MD Date Time Electronically viewed and signed by .Jacobo Palencia MD, on 01/04/2017 12:10 .R/
--- NOTE | 2017-01-04 12:12 | RADRPT ---
PROCEDURE: XR Lumbar Spine. CLINICAL INDICATION: Back pain. TECHNIQUE: Three views. AP, lateral and cone-down lateral view of the lumbar spine were obtained. COMPARISON: No prior studies are available for comparison. FINDINGS: There is normal stature and alignment of the vertebrae. There is no fracture. There is no lytic or blastic lesion. There are degenerative changes with osteophytes and L2-3, L3-4, and L5-S1. There is disc space narro wing at L5-S1. The paravertebral soft tissues are unremarkable. IMPRESSION: 1. Degenerative changes described above. 2. No acute abnormality. RPTAT: QQ .Jacobo Palencia MD, MD Date Time Electronically viewed and signed by .Jacobo Palencia MD, on 01/04/2017 12:11 .R/
[2017-01-04] MEDS ORDERED: CYCL-319 PO (12:32)
[2017-01-04] MEDS ORDERED: KETOROLAC 60 MG INJ IM STA (12:33)
== END 2017-01-04 12:55 | disposition home or self-care (01) ==
LOC: FTE 10:54
DX: M54.41 Lumbago with sciatica, right side (principal); I10 Essential (primary) hypertension; I25.10 Atherosclerotic heart disease of native coronary artery without angina pectoris; E11.9 Type 2 diabetes mellitus without complications; Z79.82 Long term (current) use of aspirin; Z79.84 Long term (current) use of oral hypoglycemic drugs
CPT/HCPCS: 71020; 72100; 81003; 93005; 96372; 99285; J1885

== ENCOUNTER 2018-11-21 12:25 | Emergency (ER) | payer OTHER ==
[~2018-11-21] VITALS: Ht 162.6 cm; Wt 90.0 kg
[~2018-11-21 12:25] MED LIST changes: +ACET-141 PO; -ASPI-664 PO; +ASPI-817 PO; +CITA10TA10 PO; -CITA10TA72 PO; +CYCL10TA7 PO; +HYDR-3980 PO; +HYDR-4011 PO; -HYDR-902 PO; -HYDR-906 PO; +LOSA50TA14 PO; -LOSA50TA6 PO; +METF500T24 PO; -METF500T4 PO
[2018-11-21 12:34] VITALS: Ht 162.6 cm; Wt 90.0 kg
[2018-11-21] MEDS ORDERED: ACETAMINOPHEN 325 MG TAB PO ONE (13:00)
--- NOTE | 2018-11-21 16:58 | ERD ---
ER Documentation Chief Complaint Chief Complaint L foot pain/swelling/discoloration d/t injury 8 days ago- temp cast removed ROS All systems reviewed and are negative except as per history of present illness. Medications Home Meds Active Scripts Acetaminophen* (Acetaminophen*) 500 MG Extra Strength Tablet, 500 MG PO Q4H PRN for PAIN AND OR ELEVATED TEMP, #30 TAB Prov:BRANDYN SINGH DO 11/21/18 Cyclobenzaprine Hcl* (Cyclobenzaprine Hcl*) 10 Mg Tablet, 10 MG PO Q12 PRN for PAIN, #15 TAB Prov:MIRIAM AVALOS 01/04/17 Cephalexin* (Cephalexin*) 500 Mg Capsule, 500 MG PO Q8, #9 CAP Prov:NELDAMATTI DO 06/14/16 Methocarbamol* (Robaxin*) 500 Mg Tab, 500 MG PO Q8, #17 TAB Prov:NELDAMATTI DO 06/14/16 Hydrocodone/Acetaminophen ([place]est[place] 5-325 Tablet) 1 Each Tablet, 1 EACH PO Q6, #19 TAB Prov:NELDAMATTI DO 06/14/16 Naproxen* (Naproxen*) 500 Mg Tablet, 500 MG PO BID PRN for PAIN, #20 TAB Prov:NELDAMATTI DO 06/14/16 Ondansetron (Ondansetron Odt) 4 Mg Tab.rapdis, 4 MG PO Q6H PRN for NAUSEA AND/OR VOMITING, #10 TAB Prov:BRANDYN CALIX MD 05/09/16 Hydrocodone/Acetaminophen ([place]estal 10-325 Tablet) 1 Each Tablet, 1 TAB PO Q6H PRN for PAIN, #7 TAB Prov:BRANDYN CALIX MD 05/09/16 Ibuprofen* (Ibuprofen*) 600 Mg Tablet, 600 MG PO Q8 for PAIN AND/OR INFLAMMA TION, #30 TAB Prov:JONATHAN HODGES MD 05/02/16 Alprazolam* (Xanax*) 0.5 Mg Tab, 0.5 MG PO TID for ANXIETY, #15 TAB Prov:JONATHAN HODGES MD 05/02/16 Reported Medications Citalopram Hydrobromide* (Celexa*) 10 Mg Tablet, 10 MG PO DAILY, #30 TAB 06/14/16 Aspirin* (Aspirin* EC) 81 Mg Tablet.dr, 81 MG PO DAILY, TAB 05/02/16 Amlodipine Besylate* (Amlodipine Besylate*) 2.5 Mg Tablet, 2.5 MG PO DAILY, #30 TAB 05/02/16 Metformin Hcl* (Metformin Hcl*) 500 Mg Tablet, 500 MG PO WITH BREAKFAST DINNE, #60 TAB 05/02/16 Metoprolol Tartrate* (Lopressor*) 25 Mg Tab, 25 MG PO DAILY, #60 TAB 05/02/16 Losartan Potassium* (Losartan Potassium*) 50 Mg Tablet, 50 MG PO DAILY, TAB 05/02/16 Calcium Phosphate/Vitamin D3 (Calvite P&D Tablet) 1 Tab Tablet, 1 TAB PO BID, TAB 05/25/15 Omeprazole* (Omeprazole*) 20 Mg Capsule.dr, 20 MG PO DAILY, #30 CAP 05/25/15 Atorvastatin Calcium (Atorvastatin Calcium) 10 Mg Tablet, 10 MG PO QHS, #30 TAB 05/25/15 Allergies Allergies: Coded Allergies: No Known Allergy (Unverified , 11/21/18) PMhx/Soc History of Surgery: Yes (csection; appendix) Anesthesia Reaction: No Hx Neurological Disorder: No Hx Respiratory Disorders: No Hx Cardiac Disorders: Yes (HTN, CAD) Hx Psychiatric Problems: No Hx Miscellaneous Medical Probl: Yes (dm2) Hx Alcohol Use: No Hx Substance Use: No Hx Tobacco Use: No Smoking Status: Never smoker Physical Exam Vitals Vital Signs Date Temp Pulse Resp B/P (MAP) Pulse Ox O2 O2 Flow FiO2 Time Delivery Rate 11/21/18 99.2 90 20 146/73 99 12:34 (97) Physical Exam Const: No acute distress Head: Atraumatic Eyes: Normal Conjunctiva ENT: Normal External Ears, Nose and Mouth. Neck: Full range of motion. No meningismus. Resp: Clear to auscultation bilaterally Cardio: Regular rate and rhythm, no murmurs Abd: Soft, non tender, non distended. Normal bowel sounds Skin: No petechiae or rashes Back: No midline or flank tenderness Ext: No cyanosis, or edema Neur: Awake and alert Psych: Normal Mood and Affect Results 24 hrs Current Medications Medications Dose Sig/Sandy Start Time Status Last (Trade) Ordered Route PRN Stop Time Admin Dose Reason Admin 650 mg ONCE ONCE 11/21/18 DC 11/21/18 Acetaminophen PO 13:00 13:09 (Tylenol 11/21/18 13:01 Tab) Departure Diagnosis: Primary Impression: Foot pain Laterality: left Qualified Codes: M79.672 - Pain in left foot Condition: Fair Patient Instructions: Sprain Foot Referrals: [facility] YOU HAVE RECEIVED A MEDICAL SCREENING EXAM AND THE RESULTS INDICATE THAT YOU DO NOT HAVE A CONDITION THAT REQUIRES URGENT TREATMENT IN THE EMERGENCY DEPARTMENT. FURTHER EVALUATION AND TREATMENT OF YOUR CONDITION CAN WAIT UNTIL YOU ARE SEEN IN YOUR DOCTORS OFFICE WITHIN THE NEXT 1-2 DAYS. IT IS YOUR RESPONSIBILITY TO MAKE AN APPOINTMENT FOR FOLOW-UP CARE. IF YOU HAVE A PRIMARY DOCTOR --you should call your primary doctor and schedule an appointment IF YOU DO NOT HAVE A PRIMARY DOCTOR YOU CAN CALL OUR PHYSICIAN REFERRAL HOTLINE AT IF YOU CAN NOT AFFORD TO SEE A PHYSICIAN YOU CAN CHOSE FROM THE FOLLOWING [facility] [address] [facility] [address] [facility] [address] [facility] [address] [facility]. [facility] [address] [facility]. [facility]. [address] Additional Instructions: Llame al doctor MAANA y yuliana dieudonne ONOFRE PARA DENTRO DE 1-2 TORRES.Dgale a la secretaria que nosotros le instruimos hacer esta onofre.Avise o llame si dunn condicin se empeora antes de la onofre. Regresa aqui si peor o no mejor. BRANDYN SINGH DO Nov 21, 2018 16:58
[2018-11-21 17:33] VITALS: BP 132/70; PULSE 79; RESP 20
== END 2018-11-21 17:36 | disposition home or self-care (01) ==
LOC: FTE 12:25
DX: M79.672 Pain in left foot (principal); I10 Essential (primary) hypertension; E11.9 Type 2 diabetes mellitus without complications; I25.10 Atherosclerotic heart disease of native coronary artery without angina pectoris; Z79.82 Long term (current) use of aspirin; Z79.4 Long term (current) use of insulin
CPT/HCPCS: 73610; 73700

== ENCOUNTER 2018-12-06 10:07 | Emergency (ER) | payer OTHER ==
[~2018-12-06] VITALS: Ht 157.5 cm; Wt 82.7 kg
[~2018-12-06 10:07] MED LIST changes: +ALEN70TA5 PO; +ASPI81TA52 PO; +ATOR20TA38 PO; +BENZ-6 PO; +CALC1TAB79 PO; +CITA20TA11 PO; +DULO30CA47 PO; +GLIP5TAB13 PO; +IRBE300T15 PO; +LEVO750T8 PO; +METO-335 PO; +TRAM50TA PO
[2018-12-06 10:15] VITALS: Ht 157.5 cm; Wt 82.7 kg
[2018-12-06] MEDS ORDERED: traMADol 50 MG TAB PO ONE (10:30)
[2018-12-06 13:35] VITALS: BP 132/89; PULSE 89; RESP 17
== END 2018-12-06 13:36 | disposition home or self-care (01) ==
LOC: E/R 10:07
DX: J40 Bronchitis, not specified as acute or chronic (principal); I10 Essential (primary) hypertension; E11.9 Type 2 diabetes mellitus without complications; I25.10 Atherosclerotic heart disease of native coronary artery without angina pectoris; S90.32XA Contusion of left foot, initial encounter; X58.XXXA Exposure to other specified factors, initial encounter; Y92.9 Unspecified place or not applicable; Z79.82 Long term (current) use of aspirin; Z79.84 Long term (current) use of oral hypoglycemic drugs
CPT/HCPCS: 36415; 71045; 80048; 84484; 85025; 93005